=== PATIENT | female | born 1970 | race Hispanic/Latino ===

== ENCOUNTER 2018-01-23 06:33 | Day surgery (SDC) | payer OTHER, MEDICAID, SELFPAY ==
[2018-01-23] VITALS (9 sets, daily range): BP systolic 107–125; BP diastolic 62–80; PULSE 67–81; RESP 12–18; TEMP 36.1–36.3; O2SAT 94–99; BMI 51.1
[2018-01-23] MEDS: LACTATED RINGERS 1,000 ML 42 ML IV ×2 (07:15→08:51)
[2018-01-23] MEDS: CELECOXIB 200 MG CAPSULE PO (07:30)
[2018-01-23] MEDS: ACETAMINOPHEN 325 MG TABLET 975 MG PO (07:30)
[2018-01-23] MEDS: PREGABALIN 75 MG CAPSULE PO (07:30)
--- NOTE | 2018-01-23 07:41 | PM.PREOP ---
Pre-operative Note Interval Note Pre-op Check: Yes History & Physical Reviewed by Physician and Yes Exam Performed Changes: No
--- NOTE | 2018-01-23 07:45 | P.OP_ITS ---
Operative Date/Time/Diagnoses Date of procedure: 01/23/18 Time of procedure: 09:08 Pre-op diagnosis: Medial compartment osteoarthritis right knee Post-op diagnosis: same Procedure & Clinicians Procedure: Right knee medial compartment arthroplasty Same procedure as scheduled: Yes Indications: The patient presents today for medial compartment knee arthroplasty after failure of conservative treatment. The nature of the procedure including the risks and benefits, alternatives, postoperative course and expected outcome were discussed and all questions answered. Consent was obtained. Operative site confirmed and marked. Surgeon: Cleveland Alcantar Hip Hop Dancer: Asha Tinsley Anesthesia Type: Spinal and Local Operative Notes Findings: Severe medial compartment osteoarthritis. Closure Type: primary Specimen(s): none sent Implants & Drains: [employer] ZUK: B femur, 4 tibia and 9 mm polyethylene spacer. Applied: implant(s) Estimated Blood Loss (mL): 25 Blood products transfused: none Tourniquet time (min): 60 Procedure in detail: The patient was taken to the operative suite and placed under general anesthesia. The patient received prophylactic antibiotics 1 g of IV tranexamic acid prior to surgery. The lateral aspect of the leg was prepped and the knee injected with 20 mL of 1% lidocaine with epinephrine. The leg was prepped and draped in usual sterile fashion. The leg was exsanguinated with an Esmarch dressing and the tourniquet raised to 250 torr. A 10 cm medial parapatellar incision and arthrotomy was then made. The anterior aspect of the fat pad and medial meniscus was resected. A small amount of anterior tibial boss was resected with a oscillating saw. The knee was then extended and the alignment guide placed. The distal femoral and proximal tibial cutting guides were then pinned into place. The distal femoral cut was made in extension. The proximal tibial cut was made in flexion. All remaining meniscus was excised. Gaps were checked with blocks. Soft tissues were then injected with a combination of 40 mL of quarter percent Marcaine with epinephrine, 20 mL of Exparel. The femur was sized and the appropriate cutting guide placed. The peg holes were drilled and chamfer cuts made. Next the tibia was sized and drilled. Trial components were then placed. The knee had good anabaptist of soft tissue tension without over correction. Range of motion was full. The trial components were removed. The knee was cleansed with Pulsavac irrigation and dried. The components were then cemented with high viscosity vacuum mixed bone cement. The knee was held in extension until the cement had adequately cured. The knee was then irrigated and inspected for any further debris. The extensor mechanism was closed at 90? of flexion with a few interrupted #1 Vicryl sutures and a running O V-LOC suture. The knee was then filled with 50 mL of solution containing 1 g of tranexamic acid and 10 mL of 0.5% Marcaine. The subcutaneous tissue was closed with 2-0 Vicryl. The skin was closed with a running 3 0 V-LOC suture and surgical adhesive. An Aquacel dressing was applied. The leg was then wrapped with an Jeovanny which will be kept on for the first 24 hours. The patient tolerated the procedure well and was returned to recovery room in good condition. Complications: none Condition: stable Disposition: same day surgery Plan for aftercare: Routine postoperative protocol for medial compartment arthroplasty.
[2018-01-23] MEDS: CEFAZOLIN VIAL 3 GM in SODIUM CHLORIDE 0.9% 100 ML 200 ML IV (07:55)
[2018-01-23] MEDS: LIDOCAINE 1% W/EPI INJ 20 ML INJ (08:00)
[2018-01-23] MEDS: TRANEXAMIC ACID 1,000 MG VIAL 1000 MG INJ (08:08)
--- NOTE | 2018-01-23 08:20 | SUR.OPER ---
Supine on padded OR bed. Pillow under head, arms secured on padded armboards <90 degree abduction. Safety belt across torso. Non-operative leg secured with tape over blanket over lower leg. Operative leg secured in DeMayo/John positioner. Foam padded brace at thigh of operative leg.
[2018-01-23] MEDS: BUPIVACAINE 0.5% W/ EPI (PF) 20 ML, BUPIVACAINE LIPOSOME 266 MG, SODIUM CHLORIDE 0.9% 2... INJ (08:29)
[2018-01-23] MEDS: POVIDONE-IODINE 15 ML, SODIUM CHLORIDE 0.9% 250 ML TOP (08:32)
[2018-01-23] MEDS: BUPIVACAINE 0.5% (PF) 10 ML, TRANEXAMIC ACID 1,000 MG, SODIUM CHLORIDE 0.9% 20 ML INJ (08:32)
[2018-01-23] MEDS: OXYCODONE/ACETAMINOPHEN 5/325 TABLET 1 TAB PO ×2 (10:05→10:47)
--- NOTE | 2018-01-23 10:32 | SUR.PHASEII ---
Pt reported 2/10 Rt knee pain, medicated with Percocet. Ice pack in place. Pt able to wiggle toes weakly. Po intake provided, call light within reach.
--- NOTE | 2018-01-23 14:05 | SUR.PHASEII ---
assumed care from khloe andres, pt ready to go home, full feeling and sensation to lower extremities and pt able to bear weight. vss, dressing has remained c/d/i. ate lunch and tolerated fluids. prescriptions and d/c instructions given/discused with . pt left when ready and left in stable condition.
== END 2018-01-23 14:00 | disposition home or self-care (01) ==
PROVIDERS: Visit Provider Orthopaedic Surgery
PROC: (CPT 27446; principal; 2018-01-23 07:45)
DX: M17.11 Unilateral primary osteoarthritis, right knee (principal); S83.241D Other tear of medial meniscus, current injury, right knee, subsequent encounter; E66.9 Obesity, unspecified; K21.9 Gastro-esophageal reflux disease without esophagitis; G47.33 Obstructive sleep apnea (adult) (pediatric)
CPT/HCPCS: 27446; C1776; C9290; J0690; J2250; J2704; J3010

== ENCOUNTER 2023-11-29 19:17 | Emergency (ER) | payer OTHER, MEDICAID, SELFPAY ==
[2023-11-29 19:25] VITALS: BP 135/87; PULSE 98; RESP 18; TEMP 37.1; O2SAT 97; BMI 44.2
--- NOTE | 2023-11-29 19:30 | DI.RAD.S_ITS ---
PROCEDURE: XR KNEE RT 3V INDICATIONS: fall/pain TECHNIQUE: 3 views of the knee were acquired. COMPARISON: None. FINDINGS: Bones: No fractures or dislocations. No suspicious bony lesions. Soft tissues: No joint effusion. No suspicious soft tissue calcifications. IMPRESSION: Medial angelina arthroplasty fracture joint effusion Approved by: Luis Leach M.D. on 11/29/2023 at 19:06
--- NOTE | 2023-11-29 19:30 | DI.RAD.S_ITS ---
PROCEDURE: XR HIP W PEL IF DONE RT 2V INDICATIONS: fall/pain TECHNIQUE: 2 views of the hip were acquired. COMPARISON: None. FINDINGS: Bones: No fractures or dislocations. No suspicious bony lesions. The visualized pelvic ring appears intact. Soft tissues: No suspicious soft tissue calcifications or masses. IMPRESSION: No acute bony abnormality. Approved by: Luis Leach M.D. on 11/29/2023 at 19:05
--- NOTE | 2023-11-29 20:20 | ED.LOWEXIN ---
HPI - Extremity Injury (Lower) General Chief Complaint: Extremity Injury, Lower Stated Complaint: fell T-1 Time Seen by Provider: 11/29/23 19:25 Source: patient Mode of arrival: Ambulatory History of Present Illness HPI Narrative: 53-year-old female presents for evaluation of right hip and knee pain. Patient was walking up stairs yesterday and slipped, landing on her R knee and hip. Today patient has increasing pain on that side and is presenting for evaluation. Took ibuprofen at home prior to arrival. Patient ambulatory in the emergency department upon presentation. Related Data Home Medications Medication Instructions Recorded Confirmed omeprazole 40 mg capsule,delayed 40 mg PO DAILY 01/23/18 01/23/18 release Previous Rx's Medication Instructions Recorded hydroxyzine pamoate 25 mg capsule 25 mg PO Q6H PRN pain #60 caps 01/23/18 (Vistaril) oxycodone 5 mg tablet 5 mg PO Q3H PRN pain #60 tabs 01/23/18 Allergies Allergy/AdvReac Type Severity Reaction Status Date / Time No Known Drug Allergies Allergy Verified 01/23/18 07:07 Patient History Medical History GERD (gastroesophageal reflux disease) Social History household members: spouse Smoking Status: Never smoker Smoking Status: Never smoker alcohol intake frequency: holidays/special occasions only Substance Use Type: does not use Exam Initial Vital Signs Initial Vital Signs: Vital Signs Temperature 98.7 F 11/29/23 19:25 Pulse Rate 98 H 11/29/23 19:25 Respiratory Rate 18 11/29/23 19:25 Blood Pressure 135/87 11/29/23 19:25 Pulse Oximetry 97 11/29/23 19:25 Oxygen Delivery Method Room Air 11/29/23 19:25 Const: Awake, alert, no acute distress, nontoxic appearing MSK: No deformity, full range of motion, generalized tenderness along lateral aspect of right lower leg Skin: Warm, Dry, intact, no rashes Neuro: AO x3, CN II-XII grossly intact, moves all extremities Course Orders Ordered: ED Orders 11/29/23 19:30 XR hip w pel if done RT 2V Stat XR knee RT 3V Stat Vital Signs Vital signs: Vital Signs - 8 hr 11/29/23 19:25 11/29/23 20:54 Temperature 98.7 F 98 F Pulse Rate 98 H 84 Respiratory Rate 18 18 Blood Pressure 135/87 140/79 Pulse Oximetry 97 98 Oxygen Delivery Method Room Air Room Air MDM - Extremity Injury (Lower) Differential Diagnosis Differential diagnosis: Likely acute internal derangement of knee and other (contusion, abrasion) Imaging Data Extremity x-ray #1: Radiologist's Impression: PROCEDURE: XR HIP W PEL IF DONE RT 2V INDICATIONS: fall/pain TECHNIQUE: 2 views of the hip were acquired. COMPARISON: None. FINDINGS: Bones: No fractures or dislocations. No suspicious bony lesions. The visualized pelvic ring appears intact. Soft tissues: No suspicious soft tissue calcifications or masses. IMPRESSION: No acute bony abnormality. Approved by: Luis Leach M.D. on 11/29/2023 at 19:05 Extremity x-ray #2: Radiologist's Impression: CORRECTION Corrected on: 11/29/2023; PROCEDURE: XR KNEE RT 3V INDICATIONS: fall/pain TECHNIQUE: 3 views of the knee were acquired. COMPARISON: None. FINDINGS: Bones: No fractures or dislocations. No suspicious bony lesions. Soft tissues: No joint effusion. No suspicious soft tissue calcifications. IMPRESSION: Medial angelina arthroplasty without fracture or joint effusion Approved by: Luis Leach M.D. on 11/29/2023 at 19:43 MDM Narrative Medical decision making narrative: Right-sided hip and leg pain after ground level fall yesterday. Patient was ambulatory in the emergency department on presentation. Physical exam shows no deformity. X-ray showed no fracture. Rice instructions counseled with the patient at bedside. Discharge Plan Departure Patient Disposition: Home Clinical Impression: Contusion of lower extremity Qualifiers: Encounter type: initial encounter Laterality: right Qualified Code(s): S80.11XA - Contusion of right lower leg, initial encounter Instructions: DI for Contusion, DI for Leg Pain Activity Restrictions/Additional Instructions: Your x-rays today did not show any signs of fracture or dislocation. Your hardware is intact. Take Tylenol and ibuprofen as needed for pain and discomfort. Use ice as needed for comfort. Prescriptions: No Action omeprazole 40 mg Capsule,Delayed Release(Dr/Ec) 40 mg PO DAILY oxycodone 5 mg tablet 5 mg PO Q3H PRN (Reason: pain) Qty: 60 0RF hydroxyzine pamoate [Vistaril] 25 mg capsule 25 mg PO Q6H PRN (Reason: pain) Qty: 60 0RF Stand Alone Forms: Patient Portal/API
[2023-11-29 20:54] VITALS: BP 140/79; PULSE 84; RESP 18; TEMP 36.6; O2SAT 98
== END 2023-11-29 20:55 | disposition home or self-care (01) ==
PROVIDERS: Emergency Provider Emergency Medicine
DX: S80.11XA Contusion of right lower leg, initial encounter (principal); W18.30XA Fall on same level, unspecified, initial encounter
CPT/HCPCS: 73502; 73562; 99281; 99283

== ENCOUNTER 2024-06-07 17:43 | Emergency (ER) | payer OTHER, SELFPAY ==
[2024-06-07 17:59] VITALS: PULSE 94; RESP 18; TEMP 36.3; O2SAT 97; BMI 47.8
--- NOTE | 2024-06-07 22:25 | PC.NURSE ---
called for pt twice in the waiting room to revital unable to locate pt
== END 2024-06-07 18:53 | disposition left against medical advice (07) ==
PROVIDERS: Emergency Provider Emergency Medicine; PCP Nurse Practitioner Family
DX: K08.89 Other specified disorders of teeth and supporting structures (principal)
CPT/HCPCS: 99281